=== PATIENT | male | born 1985 | race Caucasian/White ===

== ENCOUNTER 2018-05-30 16:59 | Emergency (ER) | payer SELFPAY ==
[2018-05-30 17:00] VITALS: BP 155/85; PULSE 106; RESP 18; TEMP 36.6; O2SAT 98; BMI 27.9
--- NOTE | 2018-05-30 17:15 | RAD_ITS ---
STUDY: X-RAY - LEFT ELBOW REASON FOR EXAM: Male, 32 years old. Fall from ladder with pain. TECHNIQUE: 3 view(s) of the elbow. # of Images: 3 COMPARISON: None. FINDINGS: There is a mildly depressed fracture, slight cortical step-off of the articular surface, of the margin of the head of the radius. This is associated with elevation of the anterior fat pad consistent with the presence of effusion. Ulna intact with normal ulnotrochlear articulation. Distal humerus intact. No evidence of supracondylar fracture. RAD/Elbow min 3 Views IMPRESSION: Radial head fracture. Electronically Signed: Wicho Simmons, at 17:44 EDT Tel , Service support ,
--- NOTE | 2018-05-30 17:15 | RAD_ITS ---
STUDY: X-RAY - LEFT RADIUS AND ULNA REASON FOR EXAM: Male, 32 years old. Pain after a fall TECHNIQUE: 2 view(s) of the forearm. # of Images: 2 COMPARISON: None. FINDINGS: Subtle irregularity in the proximal radius suggests a nondisplaced osteochondral fracture is present. Dedicated elbow views recommended for further evaluation. No demonstrated fracture in the distal radius or ulna or within the carpal bones. RAD/Forearm 2 Views IMPRESSION: Acute osteochondral fracture in the proximal radius suspected Electronically Signed: Kali Reeves MD at 17:49 EDT , Service support ,
--- NOTE | 2018-05-30 17:52 | ED.VISSUMM ---
- ER Visit Summary Date of Service: 05/30/18 Chief Complaint: Left arm pain History of Present Illness: The patient is a [address] Hari Merlos. He is right-hand dominant. Reports that this afternoon he fell off a stepladder and injured his left forearm. Reports his pain at its 10 with movement 4 out of 10 at rest. He describes it as aching. He has no paresthesias distally. He denies any other injuries. No blow to the head or loss of consciousness. No neck or back pain. Physical Examination: Vitals: Stable. Afebrile. Neck: No vertebral tenderness. Full ROM without difficulty. Cleared by NEXUS criteria. Back: No vertebral tenderness. General: A&O x 3. NAD. Cardiovascular exam: Regular rate and rhythm, no murmur, rub or gallop. Respiratory exam: Chest nontender. No crepitus. Clear to auscultation bilaterally. No wheezes or stridor. Abdominal exam: Soft, nontender, nondistended, normal bowel sounds. No pain in RUQ or LUQ specifically. No peritoneal signs. Extremity: Moderate tenderness palpation over his left olecranon and proximal radius. Mild diffuse sinus palpation over the dorsum of his left forearm. He is neurovascular intact distally with. Decreased range of motion of his elbow secondary to pain. Test Results: Left elbow and forearm x-rays were obtained. This shows a minimally displaced radial head fracture and no other disease. Emergency Department Course and Treatment: Patient refused pain medications. He is placed in a sugar tong splint. Treatment Plan: Patient be discharged instructions for Dr. Matos within 5-7 days for another exam. He will be placed on Hamilton and naproxen for pain. Disposition: To home in improved and stable condition. Impression: 1. Left radial head fracture. 2. Sugar tong splint, fabricated. This note was generated with [employer] dictation software. It may contain incorrect words, spelling, and punctuation that were not noted in review of the chart prior to signing ED Disposition - Plan for ED Patient: Disposition: Home or Assisted Living Chief Complaint: Upper Extremity Injury Instructions: ED Fx Radial Head Prescriptions: Hydrocodone Bitart/Apap 5-325 [Hamilton 5MG-325MG] 1 tablet PO Q6H PRN PRN 5 Days #10 tablet PRN Reason: Pain Naproxen [Naprosyn] 500 mg PO BID #20 tablet Referrals: Ancelmo Matos DO [STAFF PHYSICIAN] - 5-7 Days
[2018-05-30 18:05] VITALS: BP 108/74; PULSE 68; RESP 15; O2SAT 100
== END 2018-05-30 18:06 | disposition home or self-care (01) ==
PROVIDERS: Emergency Provider Emergency Medicine; Family Provider Family Medicine; PCP Family Medicine
DX: S52.122A Displaced fracture of head of left radius, initial encounter for closed fracture (principal); W11.XXXA Fall on and from ladder, initial encounter; Y93.9 Activity, unspecified; Y92.9 Unspecified place or not applicable; Y99.9 Unspecified external cause status; Z72.0 Tobacco use
CPT/HCPCS: 29125; 73080; 73090; 99282